=== PATIENT | male | born 1990 | race Caucasian/White ===

== ENCOUNTER 2017-09-27 02:57 | Emergency (ER) | payer BC, OTHER ==
[~2017-09-27] VITALS: Ht 180.3 cm; Wt 81.6 kg
--- NOTE | 2017-09-27 03:40 | NUR ---
To bed 1 a 27 y omale patient bbself c/o "severe migraine pain on R side of head & behind my eye" x12hrs with nausea and vomiting. vss. nad noted. skin warm and dry. comfort measures rendered.
[2017-09-27] MEDS ORDERED: SUMATRIPTAN SUCCINATE 6 MG/0.5 ML VIAL SQ ONE ×2 (03:42→04:00)
[2017-09-27] MEDS ORDERED: METOCLOPRAMIDE HCL 10 MG/2 ML VIAL ONE (03:50)
[2017-09-27] MEDS ORDERED: METOCLOPRAMIDE HCL 10 MG/2 ML VIAL IV ONE (04:00)
[2017-09-27] MEDS ORDERED: IV NS 0.9% 1,000 ML BAG IV ONE (04:00)
--- NOTE | 2017-09-27 04:00 | NUR ---
started a saline lock on the right ac [id number].
--- NOTE | 2017-09-27 04:06 | NUR ---
medicated patient as ordered by Dr Malloy.
[2017-09-27] MEDS ORDERED: MORPHINE SULFATE INJ 2 MG/ML DISP.SYRIN ONE (04:32)
[2017-09-27] MEDS ORDERED: MORPHINE SULFATE INJ 2 MG/ML DISP.SYRIN IV ONE (05:00)
--- NOTE | 2017-09-27 05:13 | NUR ---
IV removed. Catheter intact and site benign. Pressure and 4x4 applied to site. No bleeding noted. Patient discharged to home in stable condition. Written and verbal after care instructions given. Patient verbalizes understanding of instruction. Patient is ambulatory with steady gait, Instructed not to drive. VSS. Nad noted. No further complaints.
[2017-09-27 05:14] VITALS: BP 119/87
== END 2017-09-27 05:14 | disposition home or self-care (01) ==
LOC: ER 02:59
DX: G43.909 Migraine, unspecified, not intractable, without status migrainosus (principal); G93.0 Cerebral cysts; J32.8 Other chronic sinusitis
CPT/HCPCS: 70450-TC; A4606; J2270; J2765; J3030; J7030; Z7610